=== PATIENT | male | born 1955 | race Caucasian/White ===

== ENCOUNTER → 2017-09-07 | Outpatient (CLI) | payer BC ==
--- NOTE | 2017-09-07 09:05 | RADIOLOGY REPORT (SQ) ---
EXAM DESCRIPTION: CT RT LOWER EXTREMITY WITHOUT COMPLETED DATE/TIME: 09/07/2017 7:59 am REASON FOR STUDY: POST TRAUMATIC OSTEOARTHRITIS, RIGHT ANKLE AND FOOT M19.171 POST-TRAUMATIC OSTEOA RTHRITIS, RIGHT ANKLE AND FOOT COMPARISON: None. TECHNIQUE: CT scan of the right foot performed without intravenous or oral contrast. Images reviewe d with soft tissue and bone windows. Reconstructed coronal and sagittal MPR images reviewed. All im ages stored on PACS. All CT scanners at this facility use dose modulation, iterative reconstruction, and/or weight based d osing when appropriate to reduce radiation dose to as low as reasonably achievable (ALARA). [facility]: Dose Right [facility]: CareDose [facility]: Dose Right [facility]: Teradose 4D [facility]: [employer] RADIATION DOSE: CT Rad equipment meets quality standard of care and radiation dose reduction techniq ues were employed. CTDIvol: 4.6 mGy. DLP: 130 mGy-cm. mGy. LIMITATIONS: None. FINDINGS: Patient is post fusion, of the navicular and cuneiform bones, and the 1st 2nd and 3rd tars ometatarsal joints with hardware. No lucency around the hardware worrisome for loosening. By CT, no gross screw fracture is seen. There is no ankylosis across the joints with hardware. Advanced joint space narrowing articular surface sclerosis, subcortical cyst formation and bony spurr ing is seen throughout the intertarsal and tarsometatarsal joints of the right foot. No malalignment of the tarsometatarsal joints or loose from deformity. At the 4th and 5th tarsometat arsal joints there is advanced arthritis with joint space narrowing bony spurring and subcortical cys t formation. The ankle joint is intact, joint space is well maintained. Small osteochondral defect at the tibial plafond on weight-bearing surface best shown on coronal image 35. The subtalar joints is intact. Calcaneocuboid joint is intact. Metatarsophalangeal joints are unremarkable. IMPRESSION: Fusion with hardware along the tarsal bones and 1st through 3rd metatarsals. No ankylos is across the joint spaces is seen. Advanced arthritis at the 4th and 5th tarsometatarsal joints without malalignment/ subluxation Small subcentimeter osteochondral defect, tibial plafond. TECHNICAL DOCUMENTATION: JOB ID: [id number] Quality ID # [id number]: Final reports with documentation of one or more dose reduction techniques (e.g., Au tomated exposure control, adjustment of the mA and/or kV according to patient size, use of iterative reconstruction technique) 2010 [employer]- All Rights Reserved Reading location - IP/workstation name: [email or web address]
== END ==
LOC: RAD 07:23
PROVIDERS: ATTEND Orthopaedic Surgery
DX: M19.171 Post-traumatic osteoarthritis, right ankle and foot (principal)